=== PATIENT | male | born 1970 | race Hispanic/Latino ===

== ENCOUNTER 2016-09-20 18:57 | Emergency (ER) | payer SELFPAY ==
[~2016-09-20] VITALS: Ht 172.7 cm; Wt 79.2 kg
[2016-09-20 21:17] LABS: URINE BILIRUBIN - DIPSTICK NEGATIVE (NEGATIVE); URINE BLOOD DIPSTICK NEGATIVE (NEGATIVE); URINE CLARITY CLEAR; URINE COLOR YELLOW; URINE GLUCOSE - DIPSTICK NEGATIVE (NEGATIVE); URINE KETONE NEGATIVE (NEGATIVE); URINE LEUK ESTERASE NEGATIVE (NEGATIVE); URINE NITRITE - DIPSTICK NEGATIVE (Negative); URINE PH 5.5 (4.5-8.0); URINE PROTEIN - DIPSTICK NEGATIVE (NEG-TRACE); URINE SPECIFIC GRAVITY 1.015; URINE UROBILINOGEN - DIPSTICK 0.2 E.U./dL (0.2)
[2016-09-20] MEDS ORDERED: ORPHENADRINE C100 M1 PO (22:47)
[2016-09-20] MEDS ORDERED: PERCOCET 5/325M1 TAB PO (22:47)
[2016-09-21 00:18] VITALS: BP 128/61
== END 2016-09-20 22:50 | disposition home or self-care (01) | DRG 552 ==
LOC: ED 18:57
PROVIDERS: Emergency Medicine
DX: M54.5 Low back pain (principal); M62.830 Muscle spasm of back; R10.11 Right upper quadrant pain; X50.0XXA Overexertion from strenuous movement or load, initial encounter